=== PATIENT | female | born 1995 | race Caucasian/White ===

== ENCOUNTER 2022-07-27 00:32 | Day surgery (SDC) | payer BC, SELFPAY ==
[2022-07-12 14:07] VITALS: BMI 43.9
--- NOTE | 2022-07-27 10:58 | P.PNAN_ITS ---
Anes - Initial Pre Proc Eval Procedure: Operation Date: 07/27/22 13:00 Proposed Procedures p Esophagogastroduodenoscopy - Sina Rascon MD Date/Time: 07/27/22 10:58 Surgeon: Sina Rascon MD Pre Op Diagnosis: nausea, abdominal pain Patient Data Age: 27 Gender: F Height: 1.63 m Weight: 116 kg Allergies Allergy/AdvReac Type Severity Reaction Status Date / Time Penicillins Allergy Intermediate Hives / Verified 07/27/22 11:57 Red Face azithromycin AdvReac Intermediate Nausea and Verified 07/27/22 11:57 Vomiting Home Medications Medication Instructions Recorded Confirmed Type omeprazole 20 mg capsule,delayed 20 mg PO DAILY 07/12/22 07/12/22 History release spironolactone 100 mg tablet 100 mg PO DAILY 07/12/22 07/12/22 History Patient hx anesthesia problems: none Family hx anesthesia problems: none Results Review: All pre-operative results and documents have been reviewed as part of the pre- operative evaluation. FORMERLY [facility], [facility] Past Medical History Medical History (Updated 07/27/22 @ 10:58 by Saúl Villasenor DO) GERD (gastroesophageal reflux disease) Social History Social History Smoking status: Never smoker Alcohol intake: former Alcohol use details: does not drink at the moment due to health issues Substance use: never Substance use type: does not use Living arrangements: with family Spiritual care concerns: No Anes - Eval Final PreProcedure Day of Procedure 07/27/22 10:58 Patient weight: morbidly obese Heart: regular rate and rhythm Lungs: clear to auscultation Airway: Mallampati scale class II Neurological: alert and oriented Last oral intake: >/= 8 hours ASA classification: III Emergent: no Anesthetic plan: proceed Anesthesia type and monitoring: general GIVS and standard monitoring Results Review: All pre-operative results and documents have been reviewed as part of the pre- operative evaluation. Informed Consent: The patient's anesthetic plan and its attendant risks and benefits were dis cussed with the patient/family/POA. Questions were solicited and answers provided to the satisfaction of the patient/family/POA.
[2022-07-27 11:58] VITALS: BP 124/69; PULSE 89; RESP 20; TEMP 36.5; O2SAT 98
[2022-07-27] MEDS: LACTATED RINGERS 1,000 ML 150 ML IV CONT (12:13)
--- NOTE | 2022-07-27 12:38 | PM.HPGS ---
History of Present Illness History of Present Illness Consent: Risks, benefits, and alternatives have been discussed and questions answered. Patient agrees to proceed with procedure. Chief complaint: nausea, abdominal pain Narrative: Jackie Mendez is a 27 year old female with nausea worse in empty stomach and also intermittent epigastric pain started few months ago after she had food poisoning , never had EGD. Started using omeprazole 20 mg daily and helping some. Review of Systems Constitutional: Constitutional: Denies headache(s) and Denies weakness Eyes: Eyes: Denies blurry vision ENT: Reports Normal hearing present, Denies headache(s) and Denies neck pain Cardiovascular: Cardiovascular: Denies chest pain and Denies dyspnea Respiratory: Respiratory: Denies dyspnea Gastrointestinal: Gastrointestinal: Reports no additional gastrointestinal complaints Genitourinary: Genitourinary: Denies dysuria Musculoskeletal: Musculoskeletal: Denies neck pain Integumentary/Breasts: Skin/Breast: Denies dry skin Neurologic: Reports Normal hearing present, Denies headache(s) and Denies weakness Psychiatric: Psychiatric: Denies anxiety Endocrine: Endocrine: Denies change in body appearance Hematologic/Lymphatic: Hematologic/Lymphatic: Denies easy bleeding Allergic/Immunologic: Allergic/Immunologic: Denies urticaria PMFSH Past Medical History Medical History (Updated 07/27/22 @ 12:40 by Sina Rascon MD) Epigastric pain GERD (gastroesophageal reflux disease) Nausea Social History Social History Smoking status: Never smoker Alcohol intake: former Alcohol use details: does not drink at the moment due to health issues Substance use: never Substance use type: does not use Living arrangements: with family Spiritual care concerns: No Meds Home Medications and Allergies Home Medications Medication Instructions Recorded Confirmed Type omeprazole 20 mg capsule,delayed 20 mg PO DAILY 07/12/22 07/12/22 History release spironolactone 100 mg tablet 100 mg PO DAILY 07/12/22 07/12/22 History Allergies Allergy/AdvReac Type Severity Reaction Status Date / Time Penicillins Allergy Intermediate Hives / Verified 07/27/22 11:57 Red Face azithromycin AdvReac Intermediate Nausea and Verified 07/27/22 11:57 Vomiting Vital Signs Vital Signs - 24 hr 07/27/22 11:58 Temperature 97.7 F Pulse Rate 89 Respiratory Rate 20 Blood Pressure 124/69 Pulse Oximetry 98 Oxygen Delivery Room Air Exam Const: General: comfortable and no acute distress HENMT: General nose exam: Normal nares present Eyes: General: appearance normal, both eyes and all related structures Neck: Neck: no JVD Resp: Auscultation: clear to auscultation bilaterally Cardio: Rate: regular rate Rhythm: regular rhythm GI: Inspection: non-distended GI Palp: Yes Soft to palpation Skin: General skin exam: normal color Neuro: General: oriented to person, oriented to place and oriented to time Speech: normal speech Extrem: General: normal to inspection Psych: Mental Status: mental status grossly normal Assessment and Plan Assessment and plan (1) Epigastric pain: Code(s): R10.13 - Epigastric pain Status: Acute Assessment and Plan: egd with bx (2) Nausea: Code(s): R11.0 - Nausea Status: Acute
[2022-07-27 12:58] VITALS: BP 100/67; PULSE 95; RESP 18; O2SAT 95
[2022-07-27 13:08] VITALS: BP 107/87; PULSE 91; RESP 23; O2SAT 96
[2022-07-27 13:18] VITALS: BP 104/63; PULSE 81; RESP 19; O2SAT 97
== END 2022-07-27 13:31 | disposition home or self-care (01) ==
PROVIDERS: PCP Family Medicine; Visit Provider Internal Medicine Gastroenterology
PROC: 0DJ08ZZ Inspection of Upper Intestinal Tract, Via Natural or Artificial Opening Endoscopic (ICD-10-PCS; CPT 43235; principal; 2022-07-27 13:00)
DX: R10.13 Epigastric pain (principal); R11.0 Nausea; K29.70 Gastritis, unspecified, without bleeding; K21.9 Gastro-esophageal reflux disease without esophagitis; E66.01 Morbid (severe) obesity due to excess calories; Z68.41 Body mass index [BMI] 40.0-44.9, adult
CPT/HCPCS: 43239; 88305; J2001; J2704; J7120

== ENCOUNTER 2022-08-10 07:02 | Outpatient (CLI) | payer BC, SELFPAY | END 2022-08-10 07:03 | disposition home or self-care (01) | LOC: ANHLAB 07:04 | PROVIDERS: PCP Physician Assistant; Visit Provider Obstetrics & Gynecology | DX: R10.2 Pelvic and perineal pain (principal) | CPT/HCPCS: 36415; 86850; 86900; 86901 ==

== ENCOUNTER 2022-08-17 00:58 | Day surgery (SDC) | payer BC, SELFPAY ==
[2022-08-09 14:22] VITALS: BMI 43.7
--- NOTE | 2022-08-09 14:32 | PC.NURSE ---
Report to the Outpatient Waiting Room, entrance under the green pavilion located off [facility], at time 12:00 on date 08/17/22. OR Time: 2:00. Time changes happen often and if your time is changed the preop area will call you the afternoon before. - You and your visitor will be asked to self-screen and do not enter if you have any COVID symptoms. - Only one visitor and NO children visitors are allowed at this time. - The patient visitor is requested to leave or wait in car when not with patient due to restrictions. - A mask is required within the hospital. Patients may have clear liquids (water, carbonated beverages, clear teas, apple juice) until 3 hours prior to surgery (11:00) with a maximum of 20 ounces. - No food from midnight until time of surgery Take the following medications with a SIP of water the morning of surgery: NONE Medications to discontinue per physician: N/A Date to take last dose: N/A Please no make-up, nail indonesian, hairspray, perfume, deodorant, or body powder the day of surgery. No jewelry (including any body piercings) or valuables the day of surgery, leave them at home. Please take a shower or bath the night before, or the morning of, surgery with an antibacterial soap. Wear comfortable, loose fitting clothing. - Jewelry must be removed prior to entering the operating room. Rings and piercings that are not removed may be cut off. - The hospital will not accept responsibility for valuables. - Please leave all valuables, including medications, at home the day of surgery. If you are going home after surgery, a licensed cart driver must drive you home. - NO public transportation without another adult. - We recommend that an adult stay with you for 24 hours following discharge. - We also recommend that you do not drive, make important decision, drink alcoholic beverages, or take any drugs that were not prescribed by your health care provider for at least 24 hours after your discharge time. Follow any additional instructions given to you from your surgeon. If you or anyone in your household have experienced Covid symptoms in the past week, please notify your surgeon or the nurse liaison at the phone number below for possible testing. Telephone instructions given to PT - JOSE MANUEL ALLAN and asked if any additional questions and then verbalized understanding. Patient advised to call surgeon office or pre surgery nurse liaison [phone] if any additional questions.
--- NOTE | 2022-08-15 06:00 | PM.IMHP ---
H&P: HPI History of Present Illness Date/Time: 08/15/22 06:00 Chief Complaint: Pelvic pain Narrative: This is a 27-year-old 0 who is admitted for diagnostic laparoscopy secondary to severe pelvic pain. She had negative testing for STDs she had an ultrasound which was unhelpful. She continues to have pain discomfort and dyspareunia. Risks and benefits of this procedure reviewed including but exclusive of , aspiration pneumonia, bleeding, transfusion, perforation injury to bowel, bladder, ureters, or other internal organs with need for open laparotomy. She received the [employer] handout entitled laparoscopy. She had all questions answered. She asked to proceed PMFSH Past Medical History Medical History Epigastric pain GERD (gastroesophageal reflux disease) Nausea Social History Social History Smoking status: Never smoker Alcohol intake: current Alcohol use details: 4/MONTH Substance use: never Substance use type: does not use Additional living arrangements comments: AUNT Spiritual care concerns: No Meds Home Medications and Allergies Home Medications Medication Instructions Recorded Confirmed Type omeprazole 20 mg capsule,delayed 20 mg PO DAILY 07/12/22 08/09/22 History release spironolactone 100 mg tablet 100 mg PO BID 07/12/22 08/09/22 History Allergies Allergy/AdvReac Type Severity Reaction Status Date / Time Penicillins Allergy Intermediate Hives / Verified 08/09/22 14:21 Red Face azithromycin AdvReac Intermediate Nausea and Verified 08/09/22 14:21 Vomiting Exam Const: General: cooperative, healthy appearing and comfortable Nutritional Appearance: average body habitus Orientation/consciousness: oriented to person, oriented to place and oriented to time Resp: Effort & Inspection: normal respiratory effort Cardio: Rate: regular rate Rhythm: regular rhythm Heart sounds: S1 normal heart sound present and S2 normal heart sound present GI: Inspection: normal to inspection : External Female Exam: normal external appearance Speculum Exam - Vagina: normal appearance of the vagina Speculum Exam - Cervix: normal appearance of the cervix Bimanual exam- vagina & uterus: uterine size normal Bimanual Exam- Adnexa, other: tender Assessment and Plan Assessment and plan (1) Pelvic pain: Code(s): R10.2 - Pelvic and perineal pain Status: Acute Plan Diagnostic laparoscopy
[2022-08-17] VITALS (11 sets, daily range): BP systolic 95–136; BP diastolic 59–86; PULSE 74–101; RESP 9–16; TEMP 36.6; O2SAT 94–100
--- NOTE | 2022-08-17 06:46 | WPDHPUPDATE1 ---
History and Physical Update Update Date/Time: 08/17/22 06:46 History and Physical has been reviewed, including an updated exam of the patient. There are NO changes in the patient's condition. Risks, benefits, and alternatives have been discussed and questions answered. Patient agrees to proceed with procedure.
--- NOTE | 2022-08-17 10:01 | P.PNAN_ITS ---
Anes - Initial Pre Proc Eval Procedure: Operation Date: 08/17/22 11:30 Proposed Procedures p Diagnostic Laparoscopy - Deangelo Monge MD Date/Time: 08/17/22 10:01 Surgeon: Deangelo Monge MD Pre Op Diagnosis: Pelvic Pain Patient Data Age: 27 Gender: F Height: 1.63 m Weight: 115.67 kg Allergies Allergy/AdvReac Type Severity Reaction Status Date / Time Penicillins Allergy Intermediate Hives / Verified 08/09/22 14:21 Red Face azithromycin AdvReac Intermediate Nausea and Verified 08/09/22 14:21 Vomiting Home Medications Medication Instructions Recorded Confirmed Type omeprazole 20 mg capsule,delayed 20 mg PO DAILY 07/12/22 08/09/22 History release spironolactone 100 mg tablet 100 mg PO BID 07/12/22 08/09/22 History hydrocodone 5 mg-acetaminophen 325 1 tablet PO Q4H PRN pain #20 tabs 08/17/22 Rx mg tablet Patient hx anesthesia problems: none Family hx anesthesia problems: none Results Review: All pre-operative results and documents have been reviewed as part of the pre- operative evaluation. [facility] Past Medical History Medical History Epigastric pain GERD (gastroesophageal reflux disease) Nausea Social History Social History Smoking status: Never smoker Alcohol intake: current Alcohol use details: 4/MONTH Substance use: never Substance use type: does not use Living arrangements: with family Additional living arrangements comments: AUNT Spiritual care concerns: No Anes - Eval Final PreProcedure Day of Procedure 08/17/22 10:01 Patient weight: morbidly obese Heart: regular rate and rhythm Lungs: clear to auscultation Airway: Mallampati scale class II Neurological: alert and oriented Last oral intake: >/= 8 hours ASA classification: III Emergent: no Anesthetic plan: proceed Anesthesia type and monitoring: general ETT and standard monitoring Results Review: All pre-operative results and documents have been reviewed as part of the pre- operative evaluation. Informed Consent: The patient's anesthetic plan and its attendant risks and benefits were dis cussed with the patient/family/POA. Questions were solicited and answers provided to the satisfaction of the patient/family/POA.
[2022-08-17] MEDS: ACETAMINOPHEN 500 MG TABLET 1000 MG PO (10:16)
[2022-08-17] MEDS: LACTATED RINGERS 1,000 ML 30 ML IV CONT ×2 (10:27→12:47)
[2022-08-17] MEDS: KETOROLAC 15 MG/ML VIAL (*BKC) IV PUSH (10:28)
--- NOTE | 2022-08-17 12:05 | W.PM.PROC2 ---
Procedure Note - Detailed Date of Procedure 08/17/22 Pre-op Diagnosis Pelvic Pain Post-op Diagnosis Other (Endometriosis/ left ovarian cyst) Procedure Performed Laparoscopy with destruction of endometriosis. Destruction of left ovarian cyst Surgeon Deangelo Monge MD Anesthesia General Indications This is a 27-year-old female with pelvic pain this been refractory to medical therapy Findings Normal-appearing right ovary and tube. Normal-appearing appendix gallbladder and liver edge. Normal-appearing uterus. Endometriosis and powder burn form along each uterosacral ligament. A benign-appearing left ovarian cyst. Description of Procedure Patient was prepped draped in normal sterile fashion placed in the dorsal lithotomy position. Under excellent general trach anesthesia weighted speculum placed in posterior fornix vagina. Anterior lip of the cervix grasped with a single-tooth tenaculum. Collazo's cannula was inserted the cervix attached to the single-tooth to be used later for uterine manipulation. The bladder was drained of clear urine. The weighted speculum was removed the gloves were changed. An infraumbilical incision made the Veress needle passed in the abdomen. Abdomen filled with CO2 gas [id number] the 5mm trocar advanced in the abdomen with the up the view and no injury seen. Patient placed in Trendelenburg and a suprapubic incision made. The 5mm trocar advanced under direct visualization assuring injury. The above findings were seen. Using point cautery with 35 w per 2nd the endometriosis was cauterized each resectable ligament. Irrigation undertaken until clear. The left ovarian cyst was noted and this was opened in linear fashion and drained of clear follicular fluid. The remainder the pelvis appeared within normal limits and photo documentation was undertaken. The lower site removed. The gas removed from the abdomen. The upper site removed the incisions closed with 4 Monocryl and glue. Instruments removed from the vagina. The patient was awakened went to recovery in satisfactory condition. All sponge, needle, instrument counts were correct. There were no immediate complications Estimated Blood Loss 5 Drains No Packing No Pathology None sent Complications No immediate complications Condition Stable Disposition PACU
== END 2022-08-17 14:40 | disposition home or self-care (01) ==
PROVIDERS: PCP Physician Assistant; Visit Provider Obstetrics & Gynecology
PROC: (CPT 49320; principal; 2022-08-17 11:30)
DX: N80.3C3 Endometriosis of bilateral uterosacral ligament(s), unspecified depth (principal); N83.202 Unspecified ovarian cyst, left side; K21.9 Gastro-esophageal reflux disease without esophagitis
CPT/HCPCS: 58662; A9270; J0330; J1100; J1170; J1885; J2250; J2405; J2704; J3010; J7120

== ENCOUNTER 2023-02-10 20:57 | Emergency (ER) | payer BC, SELFPAY ==
--- NOTE | ~2023-02-10 | CT_ITS ---
EXAMINATION: CT abdomen pelvis w con DATE: 02/11/2023 02:32 INDICATION: Right upper quadrant abdominal pain. Nausea, vomiting, and diarrhea. TECHNIQUE: Computed tomography (CT) of the abdomen and pelvis was performed with 100 mL Omnipaque 350 intravenous contrast. Automated exposure control and iterative reconstruction technique were employe d. The dose-length product was 1608.77 mGy-cm. COMPARISON: None. FINDINGS: The visualized portions of the lung bases demonstrate mild atelectasis. No pleural effusion . The heart size is normal. No pericardial effusion. The liver and spleen are normal. The gallbladder is distended. The pancreas, adrenal glands, and kidneys are normal. There is a 3.0 cm cyst in left o vary, likely a follicular cyst. There are no dilated loops of bowel. The appendix is normal. There ar e no pathologically enlarged lymph nodes. There is no free intraperitoneal fluid. There is mild chron ic anterior wedging of T11 vertebral body. There is mild thoracic spondylosis. IMPRESSION: 1. Gallbladder distention, which may be secondary to fasting or acute cholecystitis. Correlate with p hysical exam. Reviewed, dictated and finalized at location D. IMPRESSION: 1. Gallbladder distention, which may be secondary to fasting or acute cholecyst itis. Correlate with physical exam.
[2023-02-10 21:15] VITALS: BP 117/79; PULSE 127; RESP 18; TEMP 36.6; O2SAT 100
[2023-02-10 23:33] VITALS: BP 137/74; PULSE 112; RESP 16; TEMP 37.1; O2SAT 98
[2023-02-11] VITALS (14 sets, daily range): BP systolic 110–122; BP diastolic 58–75; PULSE 86–102; RESP 16–20; O2SAT 96–100
[2023-02-11 00:22] LABS: Basophils Percent Auto 0.2 % (0.2-1.2); Eosinophils Percent Auto 0.1 % (0-4.4); Hematocrit 42.9 % (37.0-47.0); Hemoglobin 14.3 g/dL (12.0-15.0); Immature Granulocyte Absolute 0.11 K/mm3 (0.00-0.031); Immature Granulocyte Percent A 0.7 % (0-0.5); Lymphocytes Absolute Auto 0.79 K/mm3 (0.9-3.2); Lymphocytes Percent Auto 4.9 % (18.3-44.2); Mean Corpuscular HGB Conc 33.3 g/dl (32-36); Mean Corpuscular Volume 90.1 fl (80-100); Mean Platelet Volume 9.7 fl (7.4-10.4); Monocytes Absolute Auto 0.8 K/mm3 (0.1-0.6); Monocytes Percent Auto 4.6 % (2.6-8.5); Neutrophils Absolute Auto 14.5 K/mm3 (1.3-6.7); Neutrophils Percent Auto 89.5 % (45.5-73.1); Platelet Count Result 387 k/mm3 (150-375); Red Blood Count 4.76 M/mm3 (4.2-5.4); Red Cell Distribution Width 13.2 % (11.5-14.5); White Blood Count 16.2 K/mm3 (4.5-10.0)
[2023-02-11 00:30] LABS: Alanine Aminotransferase 28 U/L (6-35); Alkaline Phosphatase 93 U/L (38-126); Anion Gap 10 mmol/L (8-16); Aspartate Amino Transferase 24 U/L (14-36); Bilirubin,Total 0.8 mg/dL (0.2-1.3); Blood Urea Nitrogen 9 mg/dL (7-17); Calcium 8.6 mg/dL (8.4-10.2); Carbon Dioxide 23 mmol/L (22-30); Chloride 104 mmol/L (98-107); Estimated CRCL calculation 153 ml/min; Estimated Glomerular Filt Rate > 60; Glucose 106 mg/dL (65-110); Lipase 27 U/L (23-300); Potassium 3.4 mmol/L (3.4-5.0); Sodium 137 mmol/L (137-145)
[2023-02-11] MEDS: FAMOTIDINE 20 MG/2 ML VIAL IV PUSH (00:55)
[2023-02-11] MEDS: ONDANSETRON INJ 4 MG/2 ML VIAL IV PUSH (00:55)
[2023-02-11 00:59] LABS: Appearance Urine Cloudy (Clear); Bilirubin Urine 1+ (Negative); Blood Urine Negative (Negative); Glucose Urine UA Negative (Negative); Ketones Urine Negative (Negative); Leukocyte Esterase Ur Negative LEU/UL (Negative); Nitrate Urine Negative (Negative); Protein Urine 1+ mg/dL (Negative); Specific Grav Ur >= 1.030 (1.001-1.035); pH Urine 5.5 (5.0-9.0)
[2023-02-11 01:00] LABS: Add Urine Microscopic? YES; Color Urine Light Orange (Yellow)
[2023-02-11] MEDS: SODIUM CHLORIDE 0.9% IV 1,000 ML 999 ML IV CONT (01:08)
--- NOTE | 2023-02-11 01:28 | ED.NAVMDI ---
HPI - Nausea/Vomiting/Diarrhea General Chief complaint: Nausea/Vomiting/Diarrhea Stated complaint: n/v, abd pain, food poisoning? Time Seen by Provider: 02/11/23 00:46 History of Present Illness HPI Narrative: Patient is a 27 year old female with a history of gastritis here for evaluation of nausea, vomiting, upper abdominal pain and fevers x 1 day. Patient states that yesterday she had olive garden and has felt unwell all day today. Unable to tolerate PO. Reports a cramping sensation in her right upper quadrant, fever of 100.9, and countless episodes of vomiting yellow emesis and non-bloody diarrhea. No sick contacts. Hx of endometrial ablation for endometriosis last year but is having no pelvic pain or urinary symptoms. Related Data Home Medications Medication Instructions Recorded Confirmed drospirenone 3 mg-estetrol 14.2 mg See Rx Instructions PO .COMPLEX 10/18/22 (28) tablet ([employer]stell[employer]) Allergies Allergy/AdvReac Type Severity Reaction Status Date / Time Penicillins Allergy Intermediate Hives / Verified 11/26/22 16:08 Red Face azithromycin AdvReac Intermediate Nausea and Verified 11/26/22 16:08 Vomiting Review of Systems Review of Systems: Gen.: Denies fevers or chills Eyes: Denies eye pain or visual change ENT: Denies congestion Respiratory: Denies shortness of breath or cough CV: Denies chest pain or palpitations GI: Reports abdominal pain, nausea, vomiting and diarrhea denies burning, urgency, frequency or hematuria Musculoskeletal: Denies back pain or muscle pain Neuro: Denies numbness, tingling, weakness or focal weakness Skin: Denies rash Except as documented, all other systems reviewed and negative FORMERLY [facility] Past Medical History Medical History Allergic rhinitis Endometriosis Gastritis GERD (gastroesophageal reflux disease) PCOS (polycystic ovarian syndrome) Social History Social History Smoking status: Never smoker Alcohol intake: current Alcohol use details: 4/MONTH Substance use: never Substance use type: does not use Living arrangements: with family Additional living arrangements comments: AUNT Spiritual care concerns: No Exam Narrative: APPEARANCE: Uncomfortable appearing. Head: Normocephalic and atraumatic. EYES: PERRLA/EOMI, conjunctivae clear NOSE: No nasal drainage EARS: External ear normal in appearance THROAT: Oropharynx is clear. Mucous membranes are moist. NECK: Supple. No adenopathy, no masses. RESPIRATORY: Airway patent, respirations nonlabored. Clear to auscultation bilaterally, no rales, rhonchi, wheezing. CARDIOVASCULAR: Regular rate and rhythm without murmurs, rubs, or gallops. ABDOMINAL: Tender to palpation in the right upper quadrant with moderate involuntary guarding. Normoactive bowel sounds. MUSCULOSKELETAL: Extremities are warm and well-perfused. Moves all extremities well. No edema. NEURO: Normal speech. No focal neurologic deficits. SKIN: Skin is warm and dry. No rashes. PSYCHIATRIC: Normal affect/mood.. Course Vital Signs Vital signs: Vital Signs Temperature 97.9 F 02/10/23 21:15 Pulse Rate 127 H 02/10/23 21:15 Respiratory Rate 18 02/10/23 21:15 Blood Pressure 117/79 02/10/23 21:15 Pulse Oximetry 100 02/10/23 21:15 Oxygen Delivery Room Air 02/10/23 21:15 Temperature 98.8 F 02/10/23 23:33 Pulse Rate 94 02/11/23 04:02 Respiratory Rate 19 02/11/23 04:02 Blood Pressure 112/66 02/11/23 03:46 Pulse Oximetry 97 02/11/23 04:02 Oxygen Delivery Room Air 02/10/23 21:15 MDM - Nausea/Vomiting/Diarrhea MDM Narrative Medical decision making narrative: 27-year-old female here for evaluation of right upper quadrant abdominal pain, diarrhea nausea and vomiting all day today. Patient initially tachycardic in the ED which improved with IV fluid administration. And of her loreta
== END 2023-02-11 04:47 | disposition home or self-care (01) ==
PROVIDERS: Emergency Medicine; Emergency Provider Physician Assistant; PCP Physician Assistant
DX: K52.9 Noninfective gastroenteritis and colitis, unspecified (principal)
CPT/HCPCS: 36415; 74177; 80053; 81001; 81025; 83690; 85025; 96361; 96374; 96375; 99284; J2405; J7030; Q9967

== ENCOUNTER 2023-03-10 09:35 | Outpatient (CLI) | payer BC, SELFPAY ==
--- NOTE | ~2023-03-10 | MR_ITS ---
EXAMINATION: foot LT wo con DATE: 03/10/2023 10:20 INDICATION: Lateral left foot pain for 3 months. TECHNIQUE: Magnetic resonance imaging (MRI) of the left foot was performed without intravenous contra st. COMPARISON: None FINDINGS: There is mild hallux valgus. No fracture. There is mild osteoarthritis of first metatarsoph alangeal joint. Lisfranc ligament is normal. The flexor and extensor tendons are normal. IMPRESSION: 1. Mild hallux valgus. 2. Mild osteoarthritis of first metatarsophalangeal joint. Reviewed, dictated and finalized at location A.
== END 2023-03-10 09:36 | disposition home or self-care (01) ==
PROVIDERS: PCP Physician Assistant; Visit Provider Physician Assistant Surgical
DX: M20.12 Hallux valgus (acquired), left foot (principal); M19.072 Primary osteoarthritis, left ankle and foot
CPT/HCPCS: 73718